=== PATIENT | female | born 1995 | race Asian ===

== ENCOUNTER 2017-11-01 02:20 | Emergency (ER) | payer OTHER ==
[~2017-11-01] VITALS: Ht 167.6 cm; Wt 77.1 kg
[2017-11-01 02:55] VITALS: BP 122/81; TEMP 100.2
== END 2017-11-01 02:55 | disposition home or self-care (01) ==
LOC: ED 02:20
DX: H10.89 Other conjunctivitis (principal); H57.13 Ocular pain, bilateral
CPT/HCPCS: 99283

== ENCOUNTER 2019-01-02 00:10 | Emergency (ER) | payer OTHER ==
[~2019-01-02] VITALS: Ht 167.6 cm; Wt 70.3 kg
[2019-01-02 01:03] LABS: PLATELET COUNT 337 K/uL (152-353)
[2019-01-02 01:22] LABS: POTASSIUM 3.3 mmol/L (3.6-5.2)
[2019-01-02 01:26] LABS: PARTIAL THROMBOPLASTIN TIME 26.1 SECONDS (24.5-33.6)
[2019-01-02 01:55] VITALS: BP 110/63; TEMP 97.5
== END 2019-01-02 01:55 | disposition home or self-care (01) ==
LOC: ED 00:10
PROVIDERS: Hospitalist
DX: J40 Bronchitis, not specified as acute or chronic (principal); J06.9 Acute upper respiratory infection, unspecified
CPT/HCPCS: 36415; 80048; 85027; 85379; 85610; 85730; 87502; 99283

== ENCOUNTER 2020-07-24 18:30 | Emergency (ER) | payer OTHER ==
[~2020-07-24] VITALS: Ht 167.6 cm; Wt 77.6 kg
[2020-07-24 19:21] VITALS: BP 149/84; TEMP 98
== END 2020-07-24 19:40 | disposition home or self-care (01) ==
LOC: ED 18:30
DX: S40.022A Contusion of left upper arm, initial encounter (principal); V49.40XA Driver injured in collision with unspecified motor vehicles in traffic accident, initial encounter; Y92.89 Other specified places as the place of occurrence of the external cause
CPT/HCPCS: 99282